=== PATIENT | female | born 1940 | race Caucasian/White ===

== ENCOUNTER → 2020-04-20 | Outpatient (CLI) | payer MEDICARE ==
[~2020-04-20] MED LIST: OMNIPAQUE 350 MG/ML, 100ML BOTTLE ONE
== END | disposition home or self-care (01) ==
LOC: RAD 12:57
PROVIDERS: ATTEND Family Medicine
DX: R59.0 Localized enlarged lymph nodes (principal); I82.290 Acute embolism and thrombosis of other thoracic veins; G95.89 Other specified diseases of spinal cord; I87.1 Compression of vein; K76.0 Fatty (change of) liver, not elsewhere classified; M48.56XA Collapsed vertebra, not elsewhere classified, lumbar region, initial encounter for fracture; N28.1 Cyst of kidney, acquired
CPT/HCPCS: 71260; 74177; Q9967

== ENCOUNTER 2020-07-23 13:28 | Outpatient (CLI) | payer MEDICARE ==
[2020-07-23] MEDS ORDERED: LIDOCAINE 1%, 10ML ONE (13:49)
== END 2020-07-23 23:59 | disposition home or self-care (01) ==
LOC: RAD 13:28
PROVIDERS: ATTEND Otolaryngology
DX: R22.1 Localized swelling, mass and lump, neck (principal); C76.0 Malignant neoplasm of head, face and neck; C79.51 Secondary malignant neoplasm of bone
CPT/HCPCS: 20206; 76942; 88305; 88341; 88342; 88360

== ENCOUNTER → 2020-11-05 | Outpatient (CLI) | payer MEDICARE | END | disposition home or self-care (01) | LOC: CFH 11:23 | PROVIDERS: ATTEND Internal Medicine | DX: C50.412 Malignant neoplasm of upper-outer quadrant of left female breast (principal); R59.9 Enlarged lymph nodes, unspecified; K59.00 Constipation, unspecified; M48.56XA Collapsed vertebra, not elsewhere classified, lumbar region, initial encounter for fracture; M43.8X6 Other specified deforming dorsopathies, lumbar region; G95.89 Other specified diseases of spinal cord | CPT/HCPCS: 71260; 74177; Q9967 ==